=== PATIENT | female | born 1990 | race Caucasian/White ===

== ENCOUNTER 2019-10-08 19:44 | Emergency (ER) | payer SELFPAY ==
--- OUTSIDE RECORDS SUMMARY | 2019-10-08 20:11 | XMS REPORT | Summary of Care ---
:1990 Author Organization [facility] Address [address] [facility] [place] [address] Care Team Providers Name Role Phone None, [place] Primary Care Provider Unavailable Reason for Visit Reason Comments Fall Lip Laceration Encounter Details Date Type Department Care Team Description 09/04/2019 Emergency [facility] Emergency Department Johann Hernandez MD Emergency [facility] [address] [facility] [place] [id number] [place] [id number] Allergies No Known Allergiesdocumented as of this encounter (statuses as of 09/05/2019) Medications No known medicationsdocumented as of this encounter (statuses as of 09/05/2019) Active Problems Not on filedocumented as of this encounter (statuses as of 09/05/2019) Social History Tobacco Use Types Packs/Day Years Used Date Never Assessed Sex Assigned at Date Recorded Not on file Job Start Date Occupation Industry Not on file Not on file Not on file Travel History Travel Start Travel End No recent travel history available. documented as of this encounter Last Filed Vital Signs Vital Sign Reading Time Taken Comments Blood Pressure 110/67 09/04/2019 12:04 AM EST Pulse 94 09/04/2019 12:04 AM EST Temperature 36.3 09/04/2019 12:04 AM EST C (97.3 F) Respiratory Rate 18 09/04/2019 12:04 AM EST Oxygen Saturation 100% 09/04/2019 12:04 AM EST Inhaled Oxygen Concentration - - Weight 83.9 kg (185 lb) 09/04/2019 12:04 AM EST Height 172.7 cm (5' 8") 09/04/2019 12:04 AM EST Body Mass Index 28.13 09/04/2019 12:04 AM EST documented in this encounter Discharge Instructions Johann Oscar MD - 09/04/2019See attached. You may develop concussion symptoms, if so, refer to the information I have given you. If your symptoms are severe or worrisome, please return back to the emergency department. You should monitor the laceration on your lip for signs of infection such as redness, drainage, fever. You can use a nonalcoholic-based mouthwash to keep the laceration clean. Return to the ER with any severe abdominal pain or vaginal bleeding. AttachmentsThe following attachments cannot be sent through Care Everywhere.Closed Head Injury (Congolese)Wound Care Discharge Instructions ( Congolese)Concussion in Adults (Congolese)documented in this encounter Plan of Treatment Health Maintenance Due Date Last Done Comments DTaP/Tdap/Td Vaccines (1 - Tdap) 12/27/1999 DEPRESSION SCREENING 2000 HIV SCREENING 12/27/2003 PAP SMEAR 2009 INFLUENZA VACCINE (#1) 2019 HEPATITIS A IMMUNIZATION SERIES Aged Out No longer eligible based on patient's age to complete this topic HPV IMMUNIZATION SERIES Aged Out No longer eligible based on patient's age to complete this topic MENINGOCOCCAL VACCINE IMM Aged Out No longer eligible based on patient's age to complete this topic PNEUMOCOCCAL 0-64 YRS Aged Out No longer eligible based on patient's age to complete this topic documented as of this encounter Results Not on filedocumented in this encounter Visit Diagnoses Diagnosis Fall, initial encounter Lip laceration, initial encounter Hematoma Contusion of unspecified site Traumatic injury of head, initial encounter 15 weeks gestation of state, incidental documented in this encounter
--- NOTE | 2019-10-08 21:13 | ED ---
- HPI Summary HPI Summary: This pt is a 28 Y/O F presenting to [facility] with a CC of a fall that occurred 5 hours [employer]. She is accompanied by her boyfriend. She states that she is 20 weeks . She states that she has abdominal pain, rated a 7/10 in severity, and is concerned for the health of her baby. She denies any fevers, chills, headaches, CP, N/V, and vaginal discharge or bleeding. She has no aggravating or alleviating factors. She states that she has no pertinent PMHx other than her . She has a GPA of 1,0,0. - History of Current Complaint Chief Complaint: EDOBProblems Stated Complaint: FALL AND 20 WKS PER PT Time Seen by Provider: 10/08/19 21:02 Hx Obtained From: Patient Chief Complaint: Other: - states she fell, concerned for baby Onset/Duration: Started Hours Ago - 5, Still Present Timing: Constant Severity: Moderate Current Severity: Moderate Pain Intensity: 7 Location of Pain: Diffuse - abdominal pain Aggravating Factors: Nothing Alleviating Factors: Nothing Associated Signs and Symptoms: Positive: Negative - chills, headaches, N/V, Other: - abdominal pain. Negative: Fever, Nausea, Vaginal Bleeding or Discharge , Vomiting - Allergies/Home Medications Allergies/Adverse Reactions: Allergies Allergy/AdvReac Type Severity Reaction Status Date / Time No Known Allergies Allergy Verified 10/08/19 19:58 PMH/Surg Hx/FS Hx/Imm Hx Previously Healthy: Yes Endocrine/Hematology History: Denies: Hx Diabetes, Hx Thyroid Disease Cardiovascular History: Denies: Hx Hypertension Respiratory History: Denies: Hx Asthma, Hx Chronic Obstructive Pulmonary Disease (COPD) GI History: Denies: Hx Cirrhosis, Hx Ulcer - Cancer History Hx Chemotherapy: No Hx Radiation Therapy: No - Surgical History Surgical History: None - Immunization History Immunizations Up to Date: Yes Infectious Disease History: No Infectious Disease History: Denies: Hx Clostridium Difficile, Hx Hepatitis, Hx Human Immunodeficiency Virus (HIV), Hx of Known/Suspected MRSA, Hx Shingles, Hx Tuberculosis, Hx Known/ Suspected VRE, Hx Known/Suspected VRSA, History Other Infectious Disease, Traveled Outside the [place] in Last 30 Days - Family History Known Family History: Positive: Hypertension - Social History Occupation: Employed Part-time Lives: With Family Alcohol Use: None Hx Substance Use: No Substance Use Type: Reports: None Hx Tobacco Use: Yes Smoking Status (MU): Light Every Day Tobacco Smoker Type: Cigarettes Amount Used/How Often: < 1/2 PPD Have You Smoked in the Last Year: Yes Review of Systems Negative: Fever, Chills Negative: Chest Pain Positive: Abdominal Pain. Negative: Vomiting, Nausea Negative: Headache All Other Systems Reviewed And Are Negative: Yes Physical Exam - Summary Physical Exam Summary: Constitutional: Well-developed, Well-nourished, Alert. (-) Distressed Skin: Warm, Dry HENT: Normocephalic; Atraumatic Eyes: Conjunctiva normal Neck: Musculoskeletal ROM normal neck. (-) JVD, (-) Stridor, (-) Tracheal deviation Cardio: Rhythm regular, rate normal, Heart sounds normal; Intact distal pulses; The pedal pulses are 2+ and symmetric. Radial pulses are 2+ and symmetric. (-) Murmur Pulmonary/Chest wall: Effort normal. (-) Respiratory distress, (-) Wheezes, (-) Rales Abd: Soft, (-) tenderness, (-) Distension, (-) Guarding, (-) Rebound Musculoskeletal: (-) Edema Lymph: (-) Cervical adenopathy Neuro: Alert, Oriented x3 Psych: Mood and affect Normal - Physical Exam Triage Information Reviewed: Yes Vital Signs On Initial Exam: Temp Pulse Resp BP SpO2 FiO2 98.8 F 107 15 117/73 97 10/08/19 19:57 10/08/19 19:57 10/08/19 19:57 10/08/19 19:57 10/08/19 19:57 Vital Signs Reviewed: Yes Procedures - Sedation Patient Received Moderate/Deep Sedation with Procedure: No Diagnostics - Vital Signs Vital Signs Temp Pulse Resp BP Pulse Ox 10/08/19 19:57 98.8 F 107 15 117/73 97 - Laboratory Lab Statement: Any lab studies that have been ordered have been reviewed, and results considered in the medical decision making process. Course/Dx - Course Course Of Treatment: This pt is a 28 Y/O F presenting to [facility] with a CC of a fall that occurred 5 hours [employer]. She is accompanied by her boyfriend. She states that she is 20 weeks . She states that she has abdominal pain, rated a 7 /10 in severity, and is concerned for the health of her baby. She denies any fevers, chills, headaches, CP, N/V, and vaginal discharge or bleeding. She has a normal PE. A bedside US found that she her baby has good heartbeat and movement. She will be discharged home with a Dx of a blunt abdominal injury. - Diagnoses Provider Diagnoses: Blunt injury of abdomen Discharge ED - Sign-Out/Discharge Documenting (check all that apply): Patient Departure - discharge - Discharge Plan Condition: Good Disposition: HOME Patient Education Materials: Blunt Abdominal Injury (ED) Referrals: Dino Cotto MD [Medical Doctor] - Additional Instructions: The baby looks fine with a good heartbeat and movement. I don't think the fall caused any significant trauma. - Billing Disposition and Condition Condition: GOOD Disposition: Home - Attestation Statements Document Initiated by Amirah: Yes Documenting Scribe: Reza Arauz Provider For Whom Amirah is Documenting (Include Credential): Terry Gracia MD Scribe Attestation: IReza, scribed for Terry Garcia MD on 10/09/19 at 1916. Scribe Documentation Reviewed: Yes Provider Attestation: The documentation as recorded by the Reza paul accurately reflects the service I personally performed and the decisions made by me, Terry Garcia MD Status of Scribe Document: Viewed
[2019-10-08 21:26] VITALS: BP 106/71
== END 2019-10-08 21:24 | disposition home or self-care (01) ==
LOC: ED 19:44
DX: O26.892 Other specified pregnancy related conditions, second trimester (principal); S39.91XA Unspecified injury of abdomen, initial encounter; W19.XXXA Unspecified fall, initial encounter; Y92.9 Unspecified place or not applicable; O99.332 Smoking (tobacco) complicating pregnancy, second trimester; F17.210 Nicotine dependence, cigarettes, uncomplicated; Z3A.20 20 weeks gestation of pregnancy
CPT/HCPCS: 99282

== ENCOUNTER 2020-02-12 21:30 | Inpatient (IN) ==
[2020-02-12] MEDS ORDERED: Lactated Ringers 1000 ml BAG 1,000 ML IV ONE (21:40)
[2020-02-12] MEDS ORDERED: Penicillin G Potassium IV 5,000,000 UNITS in NS 0.9% 100 ml BAG 100 ML IVPB ONE (21:40)
[2020-02-12] MEDS ORDERED: Lactated Ringers 1000 ml BAG 1,000 ML IV SCH ×2 (22:00→23:00)
[2020-02-12] MEDS ORDERED: Penicillin G Potassium IV 3,000,000 UNITS in NS 0.9% 100 ml BAG 100 ML IVPB SCH (22:00)
[2020-02-12] MEDS ORDERED: Dibucaine 1% OINT 28.35 GM TUBE PR PRN (22:08)
[2020-02-12] MEDS ORDERED: Witch Hazel PAD JAR TOPICAL PRN (22:08)
[2020-02-12] MEDS ORDERED: RHO D Immune Globulin (HUMAN) 300 MCG = 1,500 I.U. INJ IM ONE (22:08)
[2020-02-12] MEDS ORDERED: Glycerin ADULT 2.4 gm SUPP PR PRN (22:08)
[2020-02-12] MEDS ORDERED: Tetan/Diph/Pertus SYR(Tdap)* 0.5 ML SYR(BOOSTRIX) use SYR contains LATEX IM ONE (22:08)
[2020-02-12 23:43] LABS: ABS Basophils 0.1 10^3/ul (0-0.2); ABS Lymphocytes 1.6 10^3/ul (1.0-4.8); ABS Monocytes 0.9 10^3/ul (0-0.8); Eosinophil % 0.2 %; Hematocrit 36 % (35-47); Hemoglobin 12.3 g/dL (12.0-16.0); Lymphocyte % 7.7 %; Mean Corpuscular HGB Conc 34 g/dL (31-36); Mean Corpuscular Hemoglobin 30 pg (27-31); Mean Corpuscular Volume 90 fL (80-97); Platelet Count 234 10^3/uL (150-450); Red Blood Count 4.05 10^6 /uL (3.70-4.87); Red Cell Distribution Width 14 % (10-15); White Blood Count 20.9 10^3/uL (3.5-10.8)
[2020-02-13 00:12] LABS: Urine Benzodiazepine Screen None Detected (None Detect); Urine Opiates Screen Presumptive Positive (None Detect)
[2020-02-13] MEDS ORDERED: Oxytocin 10 UNITS/ML 1 ML VIAL ONE (00:26)
[2020-02-13 00:43] LABS: Hepatitis C Antibody Negative (Negative)
[2020-02-13 01:10] LABS: HIV 4th Generation Nonreactive (Nonreactive)
[2020-02-13 07:12] LABS: ABS Basophils 0.2 10^3/ul (0-0.2); ABS Eosinophils 0.1 10^3/ul (0-0.6); ABS Lymphocytes 3.4 10^3/ul (1.0-4.8); ABS Monocytes 1.3 10^3/ul (0-0.8); Eosinophil % 0.4 %; Hematocrit 33 % (35-47); Hemoglobin 11.4 g/dL (12.0-16.0); Lymphocyte % 16.8 %; Mean Corpuscular HGB Conc 34 g/dL (31-36); Mean Corpuscular Hemoglobin 31 pg (27-31); Mean Corpuscular Volume 89 fL (80-97); Mean Platelet Volume 10.5 fL (7.4-10.4); Nucleated Red Blood Cells % 0.1; Platelet Count 221 10^3/uL (150-450); Red Blood Count 3.72 10^6 /uL (3.70-4.87); Red Cell Distribution Width 14 % (10-15); White Blood Count 20.1 10^3/uL (3.5-10.8)
[2020-02-13] MEDS ORDERED: Tetan/Diph/Pertus SYR(Tdap)* 0.5 ML SYR(BOOSTRIX) use SYR contains LATEX IM ONE (15:15)
[2020-02-13] MEDS ORDERED: RHO D Immune Globulin (HUMAN) 300 MCG = 1,500 I.U. INJ IM ONE (15:17)
[2020-02-14 08:03] VITALS: BP 102/57
[2020-02-14] MEDS ORDERED: medroxyPROGESTERone ACETATE 150 MG/ML VIAL IM ONE (10:20)
== END 2020-02-14 15:10 | disposition home or self-care (01) | DRG 807 ==
LOC: MCHOBOUT 21:30 → MCHOB 21:37
PROVIDERS: ADMIT Obstetrics & Gynecology; ATTEND Obstetrics & Gynecology